=== PATIENT | female | born 2005 | race Caucasian/White ===

== ENCOUNTER 2024-01-13 23:49 | Emergency (ER) | payer SELFPAY ==
[~2024-01-13] VITALS: Ht 160 cm; Wt 56.0 kg
[~2024-01-13 23:49] MED LIST: NITR-87 MT; PYR200 MT
[2024-01-14 00:09] VITALS: O2SAT 100
[2024-01-14] MEDS ORDERED: ONDANSETRON HCL 4MG/2ML INJ IV STA (00:36)
[2024-01-14] MEDS ORDERED: KETOROLAC 30MG/ML VIAL IV STA (00:36)
[2024-01-14] MEDS ORDERED: SODIUM CHLORIDE 0.9% 1,000 ML IV ONE (00:45)
[2024-01-14 00:59] LABS: CHLORIDE 107 mEq/L (98-107); POTASSIUM 3.5 mEq/L (3.5-5.1); SODIUM 141 mEq/L (136-145)
[2024-01-14 01:00] LABS: CALCIUM 9.5 mg/dL (8.7-10.4); CARBON DIOXIDE 29 mEq/L (21-32)
[2024-01-14 01:05] LABS: CREATININE 0.8 mg/dL (0.6-1.0); GLUCOSE 91 mg/dL (70-105); UREA NITROGEN BLOOD 10 mg/dL (9-23)
[2024-01-14 01:27] LABS: BASOPHILS % 0.3 % (0.0-2.0); EOSINOPHILS % 1.5 % (0.0-5.0); HEMATOCRIT. 40.3 % (36.0-48.0); HEMOGLOBIN. 13.7 g/dL (12.0-16.0); LYMPHOCYTES % 17.4 % (20.0-50.0); MEAN CORPUSCULAR HEMOGLOBIN 29.5 pg (28.0-32.0); MEAN CORPUSCULAR HGB CONC 33.9 g/dL (31.0-37.0); MEAN PLATELET VOLUME 8.3 fl (7.4-10.4); NEUTROPHILS % 75.8 % (40.0-76.0); PLATELET 283 x1000/uL (130-400); RED BLOOD CELL COUNT 4.64 mill/uL (4.2-5.4); RED CELL DISTRIBUTION WIDTH 14.5 % (11.6-14.6)
[2024-01-14 02:16] LABS: HCG SCREEN NEGATIVE
[2024-01-14] MEDS ORDERED: DOXYCYCLINE HYCLATE 100MG CAPSULE PO NR (04:45)
[2024-01-14] MEDS ORDERED: CEFTRIAXONE SODIUM 500MG VIAL IM NR (04:45)
[2024-01-14] MEDS ORDERED: DOXY100C5 MT (04:49)
[2024-01-14 05:00] VITALS: BP 115/68; PULSE 61; RESP 18; TEMP 36.39180; O2SAT 100
[2024-01-14 06:43] LABS: GLUCOSE URINE NEGATIVE (NEGATIVE); KETONES URINE NEGATIVE (NEGATIVE)
[2024-01-14 06:48] LABS: CLARITY URINE HAZY (CLEAR); COLOR URINE YELLOW (YELLOW); NITRITE URINE NEGATIVE (NEGATIVE); OCCULT BLOOD URINE NEGATIVE (NEGATIVE); PROTEIN URINE NEGATIVE (NEGATIVE); SPECIFIC GRAVITY URINE 1.031 (1.005-1.030)
[2024-01-14 06:49] LABS: LEUKOCYTE ESTERASE URINE 1+ (NEGATIVE)
[2024-01-14 06:59] LABS: SQUAMOUS EPITHELIAL CELL URINE FEW /lpf (RARE/1+)
[2024-01-14 07:00] LABS: RBC URINE 0-2 /hpf (0-2)
[2024-01-14 07:01] LABS: BACTERIA URINE TRACE
== END 2024-01-14 05:01 | disposition home or self-care (01) ==
LOC: ER 23:49
DX: N83.202 Unspecified ovarian cyst, left side (principal); N89.8 Other specified noninflammatory disorders of vagina; J45.909 Unspecified asthma, uncomplicated; Z87.440 Personal history of urinary (tract) infections
CPT/HCPCS: 99284; 80048; 81003; 84703; 85025; 87210; 36415; 76830; 76856; 87591; J7030; Z7610 ×3